=== PATIENT | female | born 2000 | race Caucasian/White ===

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

== ENCOUNTER → 2020-06-12 | Outpatient (CLI) | payer BC ==
--- NOTE | 2020-06-12 11:42 | CT ---
EXAMINATION TYPE: CT angio chest DATE OF EXAM: 06/12/2020 COMPARISON: Radiograph 08/06/2016 HISTORY: 19 year-old female shortness of breath, R79.1, Abnormal d-dimer TECHNIQUE: Contiguous axial scanning of the chest performed with IV Contrast, patient injected with 1 00 mL of Isovue 370. Coronal/sagittal MIP reconstructions performed. CT DLP: 1268 mGycm Automated exposure control for dose reduction was used. FINDINGS: Heart normal size without pericardial effusion. Aorta normal caliber with very direct takeoff of the left vertebral artery directly from the aortic a rch. Residual anterior mediastinal thymic tissue. Prominent 1.5 cm right hilar lymph node. Suboptimal opacification of the pulmonary arterial system. There is subtle central area of low densit y within the left lower lobe segmental branch, referred axial image 96 and coronal image 71. However, again, the exam is limited by suboptimal contrast bolus. Otherwise, no definite pulmonary embolus. There is focal patchy bronchovascular nodular opacity, anterior right perihilar region, axial image 6 0 through 66. Additional nodular subpleural opacity anterior right upper lobe, axial image 29. No pleural effusion. Visualized upper abdomen shows no gross abnormal mobility. Bones: No osseous destructive process. IMPRESSION: 1. EQUIVOCAL FINDING DUE TO SUBOPTIMAL ARTERIAL OPACIFICATION. THERE IS A TINY CENTRAL LOW DENSITY FO CUS WITHIN A SEGMENTAL BRANCH OF THE LEFT LOWER LOBE (AXIAL IMAGE 96 AND CORONAL IMAGE 71) THAT COULD REPRESENT MIXING ARTIFACT OR A TINY PERIPHERAL BRANCH PULMONARY EMBOLUS. NO LARGE CENTRAL OR LOBAR B RANCH EMBOLUS. FURTHER CLINICAL CORRELATION WILL BE NEEDED. 2. PATCHY NODULAR PERIBRONCHOVASCULAR OPACITY ANTERIOR RIGHT HILAR REGION AND ADDITIONAL NODULAR SUBP LEURAL OPACITY ANTERIOR RIGHT UPPER LOBE. CORRELATE TO EXCLUDE THE POSSIBILITY OF EARLY ATYPICAL PNEU MONIA. 3. MILDLY ENLARGED RIGHT HILAR LYMPH NODE MEASURING 1.5 CM.
== END | disposition home or self-care (01) ==
LOC: RADCTMAIN 09:51
PROVIDERS: ATTEND Physician Assistant
DX: J98.4 Other disorders of lung (principal); R91.8 Other nonspecific abnormal finding of lung field; R59.9 Enlarged lymph nodes, unspecified; R79.1 Abnormal coagulation profile
CPT/HCPCS: 71275; Q9967

== ENCOUNTER → 2020-09-04 | Outpatient (CLI) | payer BC ==
--- NOTE | 2020-09-04 09:53 | CT ---
EXAMINATION TYPE: CT angio chest DATE OF EXAM: 09/04/2020 COMPARISON: Prior CT angiogram of the chest 06/12/2020 HISTORY: Pulmonary embolus CT DLP: 352.40 mGycm Automated exposure control for dose reduction was used. CONTRAST: CTA scan of the thorax is performed without and with IV Contrast, patient injected with 100 ml mL of Isovue 370, pulmonary embolism protocol. MIP images are created and reviewed. 3D reconstructed imag es are created on an independent workstation and reviewed. FINDINGS: LUNGS: The lungs are stable, there is some minimal airspace disease, soft tissue present in the right upper lobe, axial images #46 through 50, axial image 49 shows probable air bronchogram. Sagittal darlyn ge #75 shows abnormal soft tissue density which correlates. Punctate hyperintensity is noted, coronal image #62, axial image #50. There is no pleural effusion or pneumothorax seen. The tracheobronchia l tree is patent. AORTA: No additional significant abnormality is seen. MEDIASTINUM: There is satisfactory enhancement of the pulmonary artery and its branches, there is no CT evidence for pulmonary embolism. Right hilar node appears enlarged There are no greater than 1 cm mediastinal lymph nodes. No pericardial effusion is seen. OTHER: No additional significant abnormality is seen. IMPRESSION: FINDINGS MAY BE DUE TO GRANULOMATOUS INFECTION, FOLLOW-UP COULD BE PERFORMED TO ASSESS FOR STABILITY.
== END ==
LOC: RADCTMAIN 09-03 07:31
PROVIDERS: ATTEND Internal Medicine Critical Care Medicine
DX: I26.99 Other pulmonary embolism without acute cor pulmonale (principal)
CPT/HCPCS: 71275; Q9967

== ENCOUNTER → 2020-11-17 | Outpatient (CLI) | payer BC ==
--- NOTE | 2020-11-18 07:20 | US ---
EXAMINATION TYPE: US thyroid st tissue head/neck DATE OF EXAM: 11/17/2020 COMPARISON: NONE CLINICAL HISTORY: R22.1 Swelling mass of neck. Pt states palpable right lateral/posterior neck, pt st ates sometimes it is painful to the touch At the area of palpable lump in the right lateral posterior cervical region, there is a probable lymp h node measuring 1.3 x 0.5 x 0.5 cm. This appears to have a faint fatty hilum with color flow. Contin ued clinical follow-up to resolution is recommended. Return to imaging as clinically indicated. IMPRESSION: 1. Probable lymph node at the site of palpable lump in the right lateral posterior cervical region me asuring 1.3 cm. Continued clinical follow-up to resolution is recommended. Return to imaging as clini allen indicated.
== END | disposition home or self-care (01) ==
LOC: RADUSWWP 13:40
PROVIDERS: ATTEND Family Medicine
DX: R22.1 Localized swelling, mass and lump, neck (principal)
CPT/HCPCS: 76536

== ENCOUNTER → 2021-01-05 | Outpatient (CLI) | payer BC ==
--- NOTE | 2021-01-05 16:28 | US ---
EXAMINATION TYPE: US soft tissue head/neck DATE OF EXAM: 01/05/2021 COMPARISON: US 11/17/2020 CLINICAL HISTORY: R22.1 SWELLING,MASS.LUMP. Right palpable posterior lymph node seems larger than tonya or US. Bilateral posterior neck scanned: couple of right posterior neck nodes seen with larger = 1.1 x 1.0 x 0.5cm. Couple of left posterior neck nodes are seen for comparison with larger node = 1.1 x 1.1 x 0. 4cm. IMPRESSION: 1. Bilateral lymphadenopathy in the posterior cervical region. The right cervical posterior lymph nod e is 1.1 x 1.0 x 0.5 cm. Previously the right posterior neck lymph node was 1.3 x 0.5 x 0.5 cm. The left posterior cervical lymph node is 1.1 x 1.1 x 0.4 cm. These are most likely reactive lymph no jose. Clinical correlation is recommended. Follow-up to resolution and return imaging as clinically in dicated.
== END | disposition home or self-care (01) ==
LOC: RADUSWWP 14:49
PROVIDERS: ATTEND Family Medicine
DX: R59.1 Generalized enlarged lymph nodes (principal)
CPT/HCPCS: 76536

== ENCOUNTER → 2021-02-10 | Outpatient (CLI) | payer BC ==
--- NOTE | 2021-02-11 06:57 | CT ---
EXAMINATION TYPE: CT soft tissue neck w con DATE OF EXAM: 02/10/2021 HISTORY: enlarged lymph nodes x4 months COMPARISON: Neck ultrasound 12/20/[address] DLP: 3085.8 (with chest abd and pelvis) mGycm. Automated Exposure Control for Dose Reduction was Utilized. TECHNIQUE: CT scan of the neck is performed with IV Contrast, patient injected with 100 mL of Isovue 300, axial images are obtained, coronal and sagittal reformatted images are reviewed. FINDINGS: Airway: No gross abnormality seen. Parotid/submandibular glands: No gross abnormality seen. Carotid/Vascular Structures: Poor contrast bolus. No significant stenosis. Osseous Structures: No suspicious abnormality. Other: Scattered subcentimeter lymph nodes throughout the neck bilaterally. No abnormal greater than 1 cm neck adenopathy. The parapharyngeal spaces are maintained bilaterally. IMPRESSION: Nonspecific scattered subcentimeter lymph nodes. No suspicious mass or greater than 1 cm neck adenopathy.
--- NOTE | 2021-02-11 07:02 | CT ---
EXAMINATION TYPE: CT ChestAbdPelvis w con DATE OF EXAM: 02/10/2021 COMPARISON: CTA chest September 04, 2020 and June 12, 2020. HISTORY: enlarged lymph nodes CT DLP: 3085.8 (with st neck) mGycm. Automated Exposure Control for Dose Reduction was Utilized. CONTRAST: CT scan of the thorax, abdomen and pelvis is performed with oral and with IV Contrast, patient inject ed with 100 mL of Isovue 300. FINDINGS: LUNGS: The lungs remain grossly clear, there is no concerning new parenchymal mass or nodule identifi ed. There is no pleural effusion or pneumothorax seen. The tracheobronchial tree is patent. MEDIASTINUM: Stable slightly prominent right hilar lymph nodes with anterior extension. Stable promin ent borderline enlarged right paratracheal lymph node axial image 21. There are no new greater than 1 cm hilar or mediastinal lymph nodes. No cardiomegaly or pericardial effusion is seen. Curvilinear soft tissue density anterior superior mediastinum could reflect residual thymus tissue similar to pr ior. OTHER: No suspicious axillary adenopathy. LIVER/GB: Liver within normal limits in size; cannot exclude mild diffuse fatty infiltration. PANCREAS: No significant abnormality is seen. SPLEEN: Mild splenomegaly at 13.3 cm long axis axial image 56. ADRENALS: No significant abnormality is seen. KIDNEYS: No significant abnormality is seen. BOWEL: No significant abnormality is seen. GENITAL ORGANS: Ovaries symmetric and within normal limits in size. LYMPH NODES: No greater than 1cm abdominal or pelvic lymph nodes are appreciated. OSSEOUS STRUCTURES: No significant abnormality is seen. OTHER: No significant additional abnormality is seen. IMPRESSION: Stable prominent right hilar lymph nodes and right paratracheal lymph node. No new enlarg ed lymph nodes. No abnormal adenopathy in the abdomen or pelvis.
== END | disposition home or self-care (01) ==
LOC: RADCTMAIN 14:57
PROVIDERS: ATTEND Internal Medicine Hematology & Oncology
DX: R59.0 Localized enlarged lymph nodes (principal)
CPT/HCPCS: 70491; 71260; 74177; Q9967

== ENCOUNTER 2021-02-12 12:52 | Emergency (ER) | payer BC ==
[2021-02-12 13:18] VITALS: TEMP 98.9
[2021-02-12 14:39] VITALS: RESP 18
[2021-02-12 14:48] LABS: Basophils % (A) 0 %; Eosinophils # (A) 0.1 k/uL (0-0.7); Eosinophils % (A) 1 %; HCT 44.4 % (34.0-46.0); HGB 14.4 gm/dL (11.4-16.0); Lymphocytes # (A) 1.8 k/uL (1.0-4.8); Lymphocytes % (A) 21 %; MCH 27.9 pg (25.0-35.0); MCHC 32.3 g/dL (31.0-37.0); MCV 86.2 fL (80.0-100.0); Monocytes # (A) 0.3 k/uL (0-1.0); Monocytes % (A) 4 %; Neutrophils # (A) 6.5 k/uL (1.3-7.7); Neutrophils % (A) 73 %; Platelet Count 256 k/uL (150-450); RBC 5.15 m/uL (3.80-5.40); RDW 13.7 % (11.5-15.5); WBC 8.9 k/uL (3.8-10.6)
--- NOTE | 2021-02-12 15:00 | ED ---
General Adult HPI - General Chief complaint: Shortness of Breath Stated complaint: Possible PE, Sent by DR Time Seen by Provider: 02/12/21 13:21 Source: patient, RN notes reviewed Mode of arrival: ambulatory Limitations: no limitations - History of Present Illness Initial comments: 20-year-old female presents emergency apartment with chief complaint of possible PE. Patient states she had COVID-19 last year developed a PE which she was on blood thinners for 3 months. Patient states she was discontinued from them. Recent she started having cough congestion shortness of breath primary care physician sent in to rule out possible PE. Patient has been being followed by pulmonary and oncology secondary to night sweats, lymph node enlargement in [facility] she had CAT scan with no specific findings. Patient has no point a chest pain no palpitations currently - Related Data Home Medications Medication Instructions Recorded Confirmed Beclomethasone Dipropionate [Qvar 1 puff INHALATION DAILY 08/06/16 08/06/16 40 mcg] ALPRAZolam [Xanax] 0.25 mg PO DAILY PRN 01/28/21 01/28/21 Escitalopram [Lexapro] 20 mg PO DAILY 01/28/21 01/28/21 Levothyroxine Sodium [Synthroid] 25 mcg PO DAILY 01/28/21 01/28/21 Minocycline [Minocin] 50 mg PO Q6HR 01/28/21 01/28/21 Previous Rx's Medication Instructions Recorded EPINEPHrine (Auto Inject) [Epipen] 0.3 mg IM ONCE PRN #2 syringe 08/06/16 Allergies Allergy/AdvReac Type Severity Reaction Status Date / Time No Known Allergies Allergy Verified 02/12/21 13:18 Review of Systems ROS Statement: Those systems with pertinent positive or pertinent negative responses have been documented in the HPI. ROS Other: All systems not noted in ROS Statement are negative. Past Medical History Past Medical History: Pneumonia, Pulmonary Embolus (PE), Thyroid Disorder Additional Past Medical History / Comment(s): COVID 05/22. vitiligo. anemia History of Any Multi-Drug Resistant Organisms: None Reported Past Surgical History: No Surgical Hx Reported Past Psychological History: No Psychological Hx Reported Smoking Status: Never smoker Past Alcohol Use History: None Reported Past Drug Use History: None Reported General Exam Limitations: no limitations General appearance: alert, in no apparent distress Head exam: Present: atraumatic, normocephalic, normal inspection Eye exam: Present: normal appearance, PERRL, EOMI. Absent: scleral icterus, conjunctival injection, periorbital swelling ENT exam: Present: normal exam, normal oropharynx, mucous membranes moist Neck exam: Present: normal inspection, full ROM. Absent: tenderness, meningismus, lymphadenopathy Respiratory exam: Present: normal lung sounds bilaterally. Absent: respiratory distress, wheezes, rales, rhonchi, stridor Cardiovascular Exam: Present: normal rhythm, tachycardia, normal heart sounds. Absent: systolic murmur, diastolic murmur, rubs, gallop, clicks GI/Abdominal exam: Present: soft, normal bowel sounds. Absent: distended, tenderness, guarding, rebound, rigid Back exam: Absent: CVA tenderness (R), CVA tenderness (L) Neurological exam: Present: alert Skin exam: Present: warm, dry, intact, normal color. Absent: rash Course Vital Signs 02/12/21 02/12/21 02/12/21 13:12 14:38 15:00 Temperature 98.9 F Pulse Rate 113 H 115 H 107 H Respiratory 22 18 18 Rate Blood Pressure 126/81 107/65 106/66 O2 Sat by Pulse 98 99 99 Oximetry EKG Findings - EKG Comments: EKG Findings:: EKG performed at 15:02 sinus tachycardia rate of 104 NM 126 QRS 74 QT/QTC 334/439 Medical Decision Making - Medical Decision Making X-rays unremarkable labs are likewise unremarkable negative d-dimer. Patient heart rate has improved. Patient will follow-up with palpation echo return parameters were discussed patient does have an upper extremity infection. - Lab Data Result diagrams: 02/12/21 14:21 02/12/21 14:21 Lab Results 02/12/21 02/12/21 02/12/21 Range/Units 14:21 14:21 14:21 WBC 8.9 (3.8-10.6) k/uL RBC 5.15 (3.80-5.40) m/uL Hgb 14.4 (11.4-16.0) gm/dL Hct 44.4 (34.0-46.0) % MCV 86.2 (80.0-100.0) fL MCH 27.9 (25.0-35.0) pg MCHC 32.3 (31.0-37.0) g/dL RDW 13.7 (11.5-15.5) % Plt Count 256 (150-450) k/uL MPV 9.0 Neutrophils % 73 % Lymphocytes % 21 % Monocytes % 4 % Eosinophils % 1 % Basophils % 0 % Neutrophils # 6.5 (1.3-7.7) k/uL Lymphocytes # 1.8 (1.0-4.8) k/uL Monocytes # 0.3 (0-1.0) k/uL Eosinophils # 0.1 (0-0.7) k/uL Basophils # 0.0 (0-0.2) k/uL PT 9.9 (9.0-12.0) sec INR 0.9 (<1.2) APTT 26.3 (22.0-30.0) sec D-Dimer <0.17 (<0.60) mg/L FEU Sodium 139 (137-145) mmol/L Potassium 4.6 (3.5-5.1) mmol/L Chloride 103 (98-107) mmol/L Carbon Dioxide 25 (22-30) mmol/L Anion Gap 11 mmol/L BUN 11 (7-17) mg/dL Creatinine 0.47 L (0.52-1.04) mg/dL Est GFR (CKD-EPI)AfAm >90 (>60 ml/min/1.73 sqM) Est GFR (CKD-EPI)NonAf >90 (>60 ml/min/1.73 sqM) Glucose 88 (74-99) mg/dL Calcium 10.1 (8.4-10.2) mg/dL Total Bilirubin 0.3 (0.2-1.3) mg/dL AST 34 (14-36) U/L ALT 52 H (4-34) U/L Alkaline Phosphatase 97 (38-126) U/L Troponin I (0.000-0.034) ng/mL Total Protein 7.5 (6.3-8.2) g/dL Albumin 4.8 (3.5-5.0) g/dL Urine HCG, Qual (Not Detectd) 02/12/21 02/12/21 Range/Units 14:21 14:21 WBC (3.8-10.6) k/uL RBC (3.80-5.40) m/uL Hgb (11.4-16.0) gm/dL Hct (34.0-46.0) % MCV (80.0-100.0) fL MCH (25.0-35.0) pg MCHC (31.0-37.0) g/dL RDW (11.5-15.5) % Plt Count (150-450) k/uL MPV Neutrophils % % Lymphocytes % % Monocytes % % Eosinophils % % Basophils % % Neutrophils # (1.3-7.7) k/uL Lymphocytes # (1.0-4.8) k/uL Monocytes # (0-1.0) k/uL Eosinophils # (0-0.7) k/uL Basophils # (0-0.2) k/uL PT (9.0-12.0) sec INR (<1.2) APTT (22.0-30.0) sec D-Dimer (<0.60) mg/L FEU Sodium (137-145) mmol/L Potassium (3.5-5.1) mmol/L Chloride (98-107) mmol/L Carbon Dioxide (22-30) mmol/L Anion Gap mmol/L BUN (7-17) mg/dL Creatinine (0.52-1.04) mg/dL Est GFR (CKD-EPI)AfAm (>60 ml/min/1.73 sqM) Est GFR (CKD-EPI)NonAf (>60 ml/min/1.73 sqM) Glucose (74-99) mg/dL Calcium (8.4-10.2) mg/dL Total Bilirubin (0.2-1.3) mg/dL AST (14-36) U/L ALT (4-34) U/L Alkaline Phosphatase (38-126) U/L Troponin I <0.012 (0.000-0.034) ng/mL Total Protein (6.3-8.2) g/dL Albumin (3.5-5.0) g/dL Urine HCG, Qual Not Detected (Not Detectd) Disposition Clinical Impression: URI (upper respiratory infection), Tachycardia, Dyspnea Disposition: HOME SELF-CARE Condition: Stable Instructions (If sedation given, give patient instructions): Tachycardia (ED) Additional Instructions: Please return to the Emergency Department if symptoms worsen or any other concerns. Is patient prescribed a controlled substance at d/c from ED?: No Referrals: Gualberto Morris MD [Primary Care Provider] - 1-2 days Time of Disposition: 16:06
[2021-02-12 15:03] LABS: INR 0.9 (<1.2); Partial Thromboplastin Time 26.3 sec (22.0-30.0); Prothrombin Time 9.9 sec (9.0-12.0)
[2021-02-12 15:04] LABS: ALT 52 U/L (4-34); AST 34 U/L (14-36); African American GFR (CKD) >90 (>60 ml/min/1.73 sqM); Albumin 4.8 g/dL (3.5-5.0); Alkaline Phosphatase 97 U/L (38-126); Anion Gap 11 mmol/L; Blood Urea Nitrogen 11 mg/dL (7-17); Calcium 10.1 mg/dL (8.4-10.2); Carbon Dioxide 25 mmol/L (22-30); Chloride 103 mmol/L (98-107); Glucose 88 mg/dL (74-99); Non-African American GFR(CKD) >90 (>60 ml/min/1.73 sqM); Potassium 4.6 mmol/L (3.5-5.1); Sodium 139 mmol/L (137-145); Total Bilirubin 0.3 mg/dL (0.2-1.3); Total Protein 7.5 g/dL (6.3-8.2)
--- NOTE | 2021-02-12 15:37 | XR ---
EXAMINATION TYPE: XR chest 2V DATE OF EXAM: 02/12/2021 COMPARISON: To 417 INDICATION: Difficulty breathing TECHNIQUE: Frontal and lateral views of the chest are obtained. FINDINGS: The heart size is normal. The pulmonary vasculature is normal. The lungs are clear. IMPRESSION: 1. No acute pulmonary process.
[2021-02-12 15:50] VITALS: BP 106/66; PULSE 107
== END 2021-02-12 16:15 | disposition home or self-care (01) ==
LOC: EC 12:52
DX: J06.9 Acute upper respiratory infection, unspecified (principal); R00.0 Tachycardia, unspecified; E07.9 Disorder of thyroid, unspecified; Z79.01 Long term (current) use of anticoagulants; Z86.16 Personal history of COVID-19; Z79.890 Hormone replacement therapy
CPT/HCPCS: 36415; 71046; 80053; 81025; 84484; 85025; 85379; 85610; 85730; 93005; 99285

== ENCOUNTER → 2021-03-11 | Outpatient (CLI) | payer BC ==
--- NOTE | 2021-03-12 10:48 | ECHOF ---
Referral Reason:R05 Cough MEASUREMENTS -------- HEIGHT: 162.6 cm WEIGHT: 108.9 kg BP: RVIDd: 3.0 cm (< 3.3) IVSd: 1.0 cm (0.6 - 1.1) LVIDd: 4.4 cm (3.9 - 5.3) LVPWd: 1.0 cm (0.6 - 1.1) IVSs: 1.5 cm LVIDs: 3.1 cm LVPWs: 1.7 cm LA Diam: 3.2 cm (2.7 - 3.8) Ao Diam: 2.4 cm (2.0 - 3.7) AV Cusp: 1.9 cm (1.5 - 2.6) LA Diam: 3.3 cm (2.7 - 3.8) MV EXCURSION: 15.135 mm (> 18.000) MV EF SLOPE: 94 mm/s (70 - 150) EPSS: 0.2 cm MV E Sanjiv: 1.06 m/s MV DecT: 165 ms MV A Sanjiv: 0.70 m/s MV E/A Ratio: 1.50 RAP: 5.00 mmHg RVSP: 32.16 mmHg FINDINGS -------- Sinus rhythm. This was a technically adequate study. The left ventricular size is normal. Left ventricular wall thickness is normal. Overall left vent ricular systolic function is normal with, an EF between 55 - 60 %. The diastolic filling pattern is normal for the age of the patient 12.66. The right ventricle is mildly enlarged. The left atrial size is normal. The right atrium is mildly enlarged. Interatrial and interventricular septum intact. There is no evidence of aortic regurgitation. There is no evidence of aortic stenosis. No mitral regurgitation. Mild tricuspid regurgitation present. There is no evidence of pulmonary hypertension. The right v entricular systolic pressure, as measured by Doppler, is 32.16mmHg. There is no pulmonic regurgitation present. The aortic root size is normal. IVC Not well visulized. There is no pericardial effusion. CONCLUSIONS -------- 1. The left ventricular size is normal. 2. Left ventricular wall thickness is normal. 3. Overall left ventricular systolic function is normal with, an EF between 55 - 60 %. 4. The right ventricle is mildly enlarged. 5. The right atrium is mildly enlarged. 6. Mild tricuspid regurgitation present. MULTIPLE KNIFE EDGE TRIMMER OPERATOR: Gloria Wyman RDCS
== END | disposition home or self-care (01) ==
LOC: RADECHMAIN 16:14
PROVIDERS: ATTEND Family Medicine
DX: I07.1 Rheumatic tricuspid insufficiency (principal)
CPT/HCPCS: 93306

== ENCOUNTER → 2021-06-11 | Outpatient (CLI) | payer BC | END | disposition home or self-care (01) | LOC: LABWHC1 07:23 | PROVIDERS: ATTEND Physician Assistant Medical | DX: R23.2 Flushing (principal) | CPT/HCPCS: 82384; 82530; 83835 ==

== ENCOUNTER → 2021-06-28 | Outpatient (CLI) | payer BC ==
--- NOTE | 2021-06-29 00:58 | MR ---
EXAMINATION TYPE: MR shoulder RT wo con DATE OF EXAM: 06/28/2021 COMPARISON: None HISTORY: Pain in right shoulder Multiplanar multi echo imaging of the right shoulder without contrast. The subscapularis tendon is intact. Glenoid francois appear intact. Biceps tendon appears normal. There is trace minimal shoulder joint effusion. The AC joint is intact. There is no subacromial impingement . Supraspinatus tendon show small defect near the attachment on the greater tuberosity of the humerus . There is no retraction. There is no evidence of a fracture. Humeral head is intact. I see no bony destructive process. There is no evidence of a soft tissue mass. IMPRESSION: Small vertical tear through the supraspinatus tendon near the attachment on the greater tuberosity. N o retraction. Small shoulder joint effusion suggestive of some mild synovitis.
== END | disposition home or self-care (01) ==
LOC: RADMRIMAIN 09:07
PROVIDERS: ATTEND Family Medicine
DX: S46.911A Strain of unspecified muscle, fascia and tendon at shoulder and upper arm level, right arm, initial encounter (principal); X58.XXXA Exposure to other specified factors, initial encounter

== ENCOUNTER → 2021-09-30 | Outpatient (CLI) | payer BC ==
[2021-09-30 15:25] LABS: African American GFR (CKD) >90 (>60 ml/min/1.73 sqM); Blood Urea Nitrogen 12 mg/dL (7-17); Non-African American GFR(CKD) >90 (>60 ml/min/1.73 sqM)
--- NOTE | 2021-09-30 21:00 | CT ---
EXAMINATION TYPE: CT sinus w con DATE OF EXAM: 09/30/2021 COMPARISON: CT dated 02/10/2021 HISTORY: Fever and dizziness for [address] DLP: 1315 mGycm (combined with the chest) Automated exposure control for dose reduction was used. CONTRAST: CT scan of the paranasal sinuses is performed with IV Contrast, patient injected with 100 mL of Isovu e 300. TECHNIQUE: CT scan of the sinuses is performed without contrast, axial images are obtained, coronal r eformatted images are also reviewed. FINDINGS: Slightly deviated bony nasal septum convex to the left side. Right middle kenneth bullosa. Unremarkabl e left middle turbinate and inferior turbinates. Slightly obliterated left infundibulum and left osti omeatal complex by minimal mucosal thickening. Patent right infundibulum and right ostiomeatal comple x. Minimal mucosal thickening of the inferior aspects of the maxillary sinuses and right anterior ethmoi d air cells, otherwise unremarkable maxillary sinuses, frontal sinus, ethmoid air cells and sphenoid sinus with patent sphenoethmoidal recesses. Clear visualized mastoid air cells. Unremarkable visualiz ed portion of the brain and orbits. IMPRESSION: Minimal mucosal thickening of the maxillary sinuses and right anterior ethmoid air cells, otherwise unremarkable paranasal sinuses. Other findings as described above.
--- NOTE | 2021-09-30 21:28 | CT ---
EXAMINATION TYPE: CT chest w con DATE OF EXAM: 09/30/2021 COMPARISON: CT dated 02/10/2021 HISTORY: Fever and dizziness for 6 months, history of PE CT DLP: 1315 mGycm (combined with the paranasal sinus CT) Automated exposure control for dose reduction was used. TECHNIQUE: CT scan of the chest is performed with IV Contrast, patient injected with 100 mL of Isovue 300. FINDINGS: LUNGS: Stable 7 mm right apical pleural-based nodule since June 2020 CT scan consistent with princess gn nodule and requiring no further follow-up. Unremarkable lungs otherwise. Patent central airways. N o pleural effusion. MEDIASTINUM: Stable prominent right hilar and right paratracheal lymph nodes without interval progres fabiola. No progressive lymphadenopathy in the chest. Persistent anterior mediastinal soft tissue densit y which could represent residual thymic tissue. No gross cardiomegaly. The pulmonary trunk measures 2 .8 cm. Patent major mediastinal vessels. No pericardial effusion. OTHER: Hepatic steatosis. Chronic healed fracture of the right clavicle. No aggressive bone lesion. IMPRESSION: Stable chronic findings as described above. No evidence of acute abnormality or suspicious lesion see n in the chest. Incidental findings as described above.
== END | disposition home or self-care (01) ==
LOC: RADCTMAIN 13:32
PROVIDERS: ATTEND Family Medicine
DX: R50.9 Fever, unspecified (principal)
CPT/HCPCS: 84260; 82565; 84520; 82785; 71260; 36415; 70487; Q9967

== ENCOUNTER → 2021-10-15 | Outpatient (CLI) | payer BC ==
--- NOTE | 2021-10-20 17:20 | PE ---
Nuclear medicine PET/CT HISTORY: R 50.9, fever Patient received 11 mCi F-18 FDG intravenously and delayed scanning was performed from the skull base through the legs. A localization and attenuation correction CT scan was performed. Correlation CT chest 09/30/2021 Chest and neck: There is no suspicious uptake. No evident cervical or supraclavicular adenopathy. There is no mediastinal, axillar, or hilar adenopathy, no suspicious uptake. No evident lung mass. ABDOMEN: There is no ascites. No evident liver mass or adrenal mass. No retroperitoneal adenopathy. N o suspicious uptake. Uptake along the bowel is felt likely to be physiologic. There is no pelvic alan opathy or free fluid. Osseous structures show no suspicious uptake. Extremities are unremarkable. IMPRESSION: Normal PET CT.
== END | disposition home or self-care (01) ==
LOC: RADPETMAIN 16:37
PROVIDERS: ATTEND Family Medicine
DX: R50.9 Fever, unspecified (principal)
CPT/HCPCS: 78816; A9552

== ENCOUNTER → 2021-10-26 | Outpatient (CLI) | payer BC ==
[2021-10-27 04:35] LABS: Scleroderma SC-70 Ab <0.2 AI
[2021-10-27 14:00] LABS: C-ANCA <1:20 Titer (<1:20)
[2021-10-27 14:28] LABS: % Iron Saturation 14.54 (12.00-45.00); C Reactive Protein, High Sens 16.2 mg/L (0.000-3.000)
== END | disposition home or self-care (01) ==
LOC: LABWHC1 16:21
PROVIDERS: ATTEND Physician Assistant Medical
DX: R50.9 Fever, unspecified (principal); D50.9 Iron deficiency anemia, unspecified; R23.2 Flushing; R07.89 Other chest pain
CPT/HCPCS: 36415; 82103; 82585; 82595; 82607; 82728; 82746; 83520; 83540; 83550; 85652; 86141; 86235; 86255; 86618

== ENCOUNTER → 2022-12-01 | Outpatient (CLI) | payer BC ==
[2022-12-02 02:21] LABS: Basophils # (A) 0.04 X 10*3/uL (0.00-0.10); Basophils % (A) 0.4 %; Eosinophils # (A) 0.06 X 10*3/uL (0.04-0.35); Eosinophils % (A) 0.6 %; HCT 42.4 % (37.2-46.3); HGB 12.8 g/dL (12.0-15.0); Immature Grans, Automated 0.6 %; Lymphocytes # (A) 1.99 X 10*3/uL (0.90-5.00); Lymphocytes % (A) 19.1 %; MCH 26.1 pg (27.0-32.0); MCHC 30.2 g/dL (32.0-37.0); MCV 86.5 fL (80.0-97.0); Monocytes # (A) 0.43 X 10*3/uL (0.20-1.00); Monocytes % (A) 4.1 %; NRBC Per 100 WBC 0 /100 WBCS (0.0-0.0); Neutrophils # (A) 7.84 X 10*3/uL (1.80-7.70); Neutrophils % (A) 75.2 %; Platelet Count 336 X 10*3/uL (140-440); RDW 13.9 % (11.5-14.5); WBC 10.42 X 10*3/uL (4.50-10.00)
[2022-12-02 02:54] LABS: ALT 17 U/L (8-44); AST 19 U/L (13-35); African American GFR (CKD) 152.2 (60.0-200.0); Albumin 4.5 g/dL (3.8-4.9); Albumin/Globulin Ratio 1.78 (1.60-3.17); Alkaline Phosphatase 77 U/L (41-126); BUN/Creat Ratio 13.16 Ratio (12.00-20.00); Blood Urea Nitrogen 7.4 mg/dL (9.0-27.0); Calcium 9.4 mg/dL (8.7-10.3); Carbon Dioxide 20.6 mmol/L (20.0-27.5); Chloride 105 mmol/L (96-109); Ferritin 79.9 ng/mL (10.0-291.0); Globulin 2.5 g/dL (1.6-3.3); Glucose 98 mg/dL (70-110); Iron 39 ug/dL (50-170); Non-African American GFR(CKD) 131.4 (60.0-200.0); Potassium 4.2 mmol/L (3.5-5.5); Sodium 140 mmol/L (135-145); Total Bilirubin <0.15 mg/dL (0.30-1.20); Total Iron Binding Capacity 489 ug/dL (228-460); Total Protein 7.1 g/dL (6.2-8.2)
[2022-12-02 03:57] LABS: Erythrocyte Sedimentation Rate 49 mm/Hr (0-20)
[2022-12-02 11:24] LABS: Hepatitis B Surface AB- Quant 3.5 mIU/mL; Hepatitis B Surface Antibody Nonreactive (Nonreactive)
== END | disposition home or self-care (01) ==
LOC: LABWHC1 15:49
PROVIDERS: ATTEND Physician Assistant Medical
DX: Z11.1 Encounter for screening for respiratory tuberculosis (principal); Z76.89 Persons encountering health services in other specified circumstances; R53.83 Other fatigue
CPT/HCPCS: 36415; 80053; 82306; 82607; 82728; 82746; 83540; 83550; 84443; 85025; 85652; 86140; 86480; 86706

== ENCOUNTER → 2023-04-03 | Outpatient (CLI) | payer BC ==
[~2023-04-03] MED LIST: IRON SUCROSE 200 MG in SODIUM CHLORIDE 0.9% 100 ML IVPB NR; SODIUM CHLORIDE 0.9% 500 ML 500 ML in EMPTY BAG 1 BAG IV PRN
[2023-04-03 08:18] VITALS: BP 116/82; PULSE 94; RESP 16; TEMP 97.8
== END ==
LOC: PROCWHC3 07:59
PROVIDERS: ATTEND Physician Assistant Medical
DX: D50.9 Iron deficiency anemia, unspecified (principal)
CPT/HCPCS: 96365; J1756

== ENCOUNTER → 2023-06-15 | Outpatient (CLI) | payer BC ==
--- NOTE | 2023-06-15 09:21 | US ---
EXAMINATION TYPE: US abdomen limited DATE OF EXAM: 06/15/2023 COMPARISON: NONE CLINICAL INDICATION: Female, 22 years old with history of R10.12 LEFT UPPER QUADRANT PAIN; Left upper quadrant pain, occasional fevers TECHNIQUE: Multiple sonographic images of the left upper quadrant are obtained. FINDINGS: EXAM MEASUREMENTS: Spleen: 11.6 cm Left Kidney: 11.3 x 6.0 x 5.1 cm 1. Spleen: wnl 2. Left Kidney: wnl IMPRESSION: No significant abnormality appreciated.
== END | disposition home or self-care (01) ==
LOC: RADUSWWP 08:48
PROVIDERS: ATTEND Family Medicine
DX: R10.12 Left upper quadrant pain (principal)
CPT/HCPCS: 76705

== ENCOUNTER 2023-06-16 08:41 | Day surgery (SDC) | payer BC ==
[2023-06-14 11:05] VITALS: BMI 36.6
[~2023-06-16 08:41] MED LIST changes: -IRON SUCROSE 200 MG in SODIUM CHLORIDE 0.9% 100 ML IVPB NR; +LACTATED RINGERS 1,000 ML IV SCH; +LIDOCAINE 1% (10MG/ML) FOR IV START INTRADERMA PRN; -SODIUM CHLORIDE 0.9% 500 ML 500 ML in EMPTY BAG 1 BAG IV PRN
[2023-06-16 09:18] VITALS: TEMP 97.5
[2023-06-16] MEDS ORDERED: LIDOCAINE 2% (PF) 20 MG/ML 5 ML VIAL ONE (09:24)
[2023-06-16] MEDS ORDERED: fentaNYL (PF) 50 MCG/ML 2 ML AMP ONE (09:24)
[2023-06-16] MEDS ORDERED: PROPOFOL 10 MG/ML 20 ML VIAL IV ONE (09:24)
--- NOTE | 2023-06-16 09:44 | P.PCN ---
Date of Procedure: 06/16/23 Procedure(s) Performed: Brief history: Patient is a pleasant 22-year-old white male scheduled for an elective upper endoscopy as well as colonoscopy as a part of evaluation of evaluation of iron deficiency anemia. Procedure performed: Esophagogastroduodenoscopy with biopsy Colonoscopy Preoperative diagnosis: Iron deficiency anemia Anesthesia: [facility] [place] Procedure: After informed consent was obtained from the patient was brought into the endoscopy unit and IV sedation was administered by anesthesia under continuous monitoring. Initially upper endoscopy was done. The Olympus GF 160 video endoscope was inserted inserted into the mouth and esophagus intubated without any difficulty and was gradually advanced into the stomach and duodenum and carefully examined. The bulb and second part of the duodenum appeared normal. Biopsies were done from the duodenum to rule out celiac disease. The scope was then withdrawn into the stomach adequately insufflated with air and upon careful examination the antrum had mild gastritis and biopsies were done from the antrum. Mucosa of the body, cardia and fundus appeared normal. The scope was then withdrawn into the esophagus. The GE junction was located at 40 cm to the incisors. It appeared regular with no erythema erosions or ulcerations. Rest of the esophagus appeared normal. Patient tolerated the procedure well. At this time the patient continued to remain sedation. Initial digital rectal examination was normal. Olympus CF 160 video colonoscope was then inserted into the rectum and gradually advanced to the cecum without any difficulty. Careful examination was performed as the scope was gradually being withdrawn. The prep was excellent. The cecum, ascending colon, transverse colon, descending colon, sigmoid colon and rectum appeared normal. Retroflexion was performed in the rectum and no lesions were noted. Patient tolerated the procedure well. Impression: 1. Upper endoscopy revealed mild antral gastritis 2. Colonoscopy was within normal limits with no evidence of colorectal neoplasia Recommendations: Findings of this examination were discussed with the patient as well as her family. She was advised to follow with the biopsy results.
[2023-06-16 10:08] VITALS: RESP 16
[2023-06-16 10:34] VITALS: BP 107/75; PULSE 83
== END 2023-06-16 10:50 | disposition home or self-care (01) ==
LOC: ORWHC2ENDO 08:41
PROVIDERS: ATTEND Internal Medicine Gastroenterology
DX: D72.820 Lymphocytosis (symptomatic) (principal); K29.50 Unspecified chronic gastritis without bleeding; D50.9 Iron deficiency anemia, unspecified; I26.99 Other pulmonary embolism without acute cor pulmonale; F41.9 Anxiety disorder, unspecified; Z79.899 Other long term (current) drug therapy
CPT/HCPCS: 81025; 88305; 88342; 45378; 43239; J3010; J2704; J2001

== ENCOUNTER 2023-07-07 20:25 | Emergency (ER) | payer BC ==
--- NOTE | 2023-07-07 21:48 | ED ---
General Adult HPI - General Source: patient, RN notes reviewed Mode of arrival: ambulatory Limitations: no limitations <Karolyn Garrison - Last Filed: 07/07/23 21:20> <Jonah Champagne - Last Filed: 07/08/23 03:46> - General Stated complaint: SOB Time Seen by Provider: 07/07/23 21:30 - History of Present Illness Initial comments: 22 year old female presents to the emergency department for evaluation of shortness of breath. She states that she has been dealing with iron deficiency anemia and has has a recent transfusion. She states that she has been feeling more short of breath than usual for the past 1 day. She does report history of PE. She denies chest pain. She states her symptoms feel different than her PE. (Karolyn Garrison) [id number] female presenting with chief complaint of shortness of breath. Patient states that she has shortness of breath at baseline but it feels slightly worse today. She has history of iron deficiency anemia, she receives regular infusions with her next appointment being next week. She denies any chest pain. No lower extremity swelling. No palpitations. No cough, con gestion, sore throat, fever, chills. No nausea vomiting or abdominal pain. (Jonah Champagne) - Related Data Home Medications Medication Instructions Recorded Confirmed ALPRAZolam [Xanax] 0.25 mg PO DAILY PRN 01/28/21 06/29/23 Escitalopram [Lexapro] 10 mg PO DAILY 01/28/21 06/29/23 Semaglutide [Wegovy] 2.4 mg SQ DIRECTED 04/03/23 06/29/23 norethindrone-e.estradioL-iron 1 tab PO DAILY 04/03/23 06/29/23 [Blisovi 24 Fe Tablet] Aspirin [Adult Low Dose Aspirin EC] 81 mg PO DAILY 06/16/23 06/29/23 B12/Levomefolate Calcium/B-6 1 each PO DAILY 06/16/23 06/29/23 [Foltx Tablet] Previous Rx's Medication Instructions Recorded EPINEPHrine (Auto Inject) [Epipen] 0.3 mg IM ONCE PRN #2 syringe 08/06/16 Allergies Allergy/AdvReac Type Severity Reaction Status Date / Time No Known Allergies Allergy Verified 07/07/23 21:55 Review of Systems ROS Other: All systems not noted in ROS Statement are negative. <Karolyn Garrison - Last Filed: 07/07/23 21:20> ROS Other: All systems not noted in ROS Statement are negative. <Jonah Champagne - Last Filed: 07/08/23 03:46> ROS Statement: Those systems with pertinent positive or pertinent negative responses have been documented in the HPI. Past Medical History Past Medical History: Pneumonia, Pulmonary Embolus (PE), Thyroid Disorder Additional Past Medical History / Comment(s): vitiligo. anemia History of Any Multi-Drug Resistant Organisms: None Reported Past Surgical History: No Surgical Hx Reported Additional Past Surgical History / Comment(s): right neck lymph node biopsy. bone marrow biopsy to r/o lymphoma. Past Anesthesia/Blood Transfusion Reactions: No Reported Reaction Smoking Status: Never smoker - Past Family History Mother Family Medical History: CVA/TIA <Karolyn Garrison - Last Filed: 07/07/23 21:20> General Exam <Karolyn Garrison - Last Filed: 07/07/23 21:20> Limitations: no limitations General appearance: alert, in no apparent distress Head exam: Present: atraumatic, normocephalic Eye exam: Present: normal appearance Neck exam: Present: normal inspection Respiratory exam: Present: normal lung sounds bilaterally. Absent: respiratory distress, wheezes, rales, rhonchi, stridor Cardiovascular Exam: Present: regular rate, normal rhythm, normal heart sounds. Absent: systolic murmur, diastolic murmur, rubs, gallop, clicks Extremities exam: Present: normal inspection. Absent: pedal edema Neurological exam: Present: alert, oriented X3 Psychiatric exam: Present: normal affect, normal mood Skin exam: Present: warm, dry <Jonah Champagne - Last Filed: 07/08/23 03:46> - General Exam Comments Initial Comments: Visual Physical Exam Vital signs reviewed General: Well-appearing, nontoxic, no acute distress. Head: Normocephalic, atraumatic Eyes: PERRLA, EOMI ENT: Airway patent Chest: Nonlabored breathing Skin: No visual rash, normal skin tone Neuro: Alert and oriented 3 Musculoskeletal: No gross abnormalities (Karolyn Garrison) Course Vital Signs 07/07/23 07/08/23 21:55 02:38 Temperature 99.2 F 99.2 F Pulse Rate 87 95 Respiratory 17 16 Rate Blood Pressure 128/80 114/77 O2 Sat by Pulse 99 98 Oximetry Medical Decision Making <Karolyn Garrison - Last Filed: 07/07/23 21:20> - Lab Data Result diagrams: 07/07/23 21:52 07/07/23 21:52 <Jonah Champagne - Last Filed: 07/08/23 03:46> - Medical Decision Making Quick note preformed by Karolyn Garrison PA-C (Karolyn Garrison) Was pt. sent in by a medical professional or institution ([facility], REGISTERED PUBLIC HEALTH NURSE, urgent care, hospital, or fdc...) When possible be specific @ -No Did you speak to anyone other than the patient for history (EMS, parent, family, police, friend...)? What history was obtained from this source @ -No Did you review nursing and triage notes (agree or disagree)? Why? @ -I reviewed and agree with nursing and triage notes Were old charts reviewed (outside hosp., previous admission, EMS record, old EKG, old radiological studies, urgent care reports/EKG's, fdc records)? Report findings @ -No old charts were reviewed Differential Diagnosis (chest pain, altered mental status, abdominal pain women, abdominal pain men, vaginal bleeding, weakness, fever, dyspnea, syncope, headache, dizziness, GI bleed, back pain, seizure, CVA, palpatations, mental health, musculoskeletal)? @ -MDM Differential Dyspnea: Coronary syndrome, arrhythmia, tamponade, asthma, COPD, pulmonary embolism, pneumonia, pneumothorax, pulmonary effusion, anaphylaxis, diabetic ketoacidosis, flailed chest, pulmonary contusion, diaphragmatic rupture, anemia, neuromuscular this is not meant to be an all-inclusive list. EKG interpreted by me (3pts min.). @ -As above X-rays interpreted by me (1pt min.). @ -Chest x-ray shows no acute cardiopulmonary process CT interpreted by me (1pt min.). @ -None done U/S interpreted by me (1pt. min.). @ -None done What testing was considered but not performed or refused? (CT, X-rays, U/S, labs)? Why? @ -None What meds were considered but not given or refused? Why? @ -None Did you discuss the management of the patient with other professionals (jovani ferro i.e. , PA, REGISTERED PUBLIC HEALTH NURSE, lab, RT, psych nurse, social service manager, options trader, teacher, small business banking officer, protective services case worker)? Give summary @ -No Was smoking cessation discussed for >3mins.? @ -No Was critical care preformed (if so, how long)? @ -No Were there social determinants of health that impacted care today? How? (Homelessness, low income, unemployed, alcoholism, drug addiction, transportation, low edu. Level, literacy, decrease access to med. care, correction, rehab)? @ -No Was there de-escalation of care discussed even if they declined (Discuss DNR or withdrawal of care, Hospice)? DNR status @ -No What co-morbidities impacted this encounter? (DM, HTN, Smoking, COPD, CAD, Cancer, CVA, ARF, Chemo, Hep., AIDS, mental health diagnosis, sleep apnea, morbid obesity)? @ -None Was patient admitted / discharged? Hospital course, mention meds given and route, prescriptions, significant lab abnormalities, going to OR and other pertinent info. @ -21-year-old female presenting with chief complaint of shortness of breath. She states that it is slightly worse than her baseline. She states that since waiting in the waiting room it seems to have improved. History of iron deficiency anemia. History and physical exam were conducted. Heart and lungs are clear to auscultation. WBC 12.2. Hemoglobin 13.2. Remainder of lab work is essentially unremarkable. She is negative for influenza, RSV, and Covid. Chest x-ray shows no acute cardiopulmonary process. Patient is educated on today's findings. She is resting comfortably showing no signs of distress. She states symptoms seem to have improved. She is agreeable with discharge home. F ollow-up with PCP. Report back to ER with any new or worsening symptoms. Discussed return parameters and answered all questions. Patient conveyed verbal understanding and agreed to the plan. I discussed this case in detail with my attending Dr. Paez Undiagnosed new problem with uncertain prognosis? @ -No Drug Therapy requiring intensive monitoring for toxicity (Heparin, Nitro, Insulin, Cardizem)? @ -No Were any procedures done? @ -No Diagnosis/symptom? @ -Shortness of breath Acute, or Chronic, or Acute on Chronic? @ -Acute Uncomplicated (without systemic symptoms) or Complicated (systemic symptoms)? @ -Uncomplicated Side effects of treatment? @ -No Exacerbation, Progression, or Severe Exacerbation? @ -No Poses a threat to life or bodily function? How? (Chest pain, [place], NH, pneumonia, PE, COPD, DKA, ARF, appy, cholecystitis, CVA, Diverticulitis, Homicidal, Eleonora cidal, threat to staff... and all critical care pts) @ -Low likelihood (Jonah Champagne) - Lab Data Lab Results 07/07/23 07/07/23 07/07/23 Range/Units 21:52 21:52 21:52 WBC 12.2 H (3.8-10.6) k/uL RBC 4.91 (3.80-5.40) m/uL Hgb 13.2 (11.4-16.0) gm/dL Hct 40.2 (34.0-46.0) % MCV 81.8 (80.0-100.0) fL MCH 26.8 (25.0-35.0) pg MCHC 32.7 (31.0-37.0) g/dL RDW 13.3 (11.5-15.5) % Plt Count 302 (150-450) k/uL MPV 9.0 Neutrophils % 63 % Lymphocytes % 30 % Monocytes % 3 % Eosinophils % 1 % Basophils % 1 % Neutrophils # 7.7 (1.3-7.7) k/uL Lymphocytes # 3.7 (1.0-4.8) k/uL Monocytes # 0.4 (0-1.0) k/uL Eosinophils # 0.2 (0-0.7) k/uL Basophils # 0.1 (0-0.2) k/uL PT 11.1 (10.0-12.5) sec INR 1.0 (<1.2) APTT 27.8 (22.0-30.0) sec Sodium 139 (137-145) mmol/L Potassium 3.9 (3.5-5.1) mmol/L Chloride 104 (98-107) mmol/L Carbon Dioxide 23 (22-30) mmol/L Anion Gap 12 mmol/L BUN 10 (7-17) mg/dL Creatinine 0.47 L (0.52-1.04) mg/dL Est GFR (CKD-EPI)AfAm >90 (>60 ml/min/1.73 sqM) Est GFR (CKD-EPI)NonAf >90 (>60 ml/min/1.73 sqM) Glucose 89 (74-99) mg/dL Calcium 9.4 (8.4-10.2) mg/dL Total Bilirubin 0.3 (0.2-1.3) mg/dL AST 23 (14-36) U/L ALT 23 (4-34) U/L Alkaline Phosphatase 72 (38-126) U/L Total Protein 7.3 (6.3-8.2) g/dL Albumin 4.4 (3.5-5.0) g/dL Influenza Type A (PCR) (Not Detectd) Influenza Type B (PCR) (Not Detectd) RSV (PCR) (Not Detectd) SARS-CoV-2 (PCR) (Not Detectd) 07/07/23 Range/Units 21:52 WBC (3.8-10.6) k/uL RBC (3.80-5.40) m/uL Hgb (11.4-16.0) gm/dL Hct (34.0-46.0) % MCV (80.0-100.0) fL MCH (25.0-35.0) pg MCHC (31.0-37.0) g/dL RDW (11.5-15.5) % Plt Count (150-450) k/uL MPV Neutrophils % % Lymphocytes % % Monocytes % % Eosinophils % % Basophils % % Neutrophils # (1.3-7.7) k/uL Lymphocytes # (1.0-4.8) k/uL Monocytes # (0-1.0) k/uL Eosinophils # (0-0.7) k/uL Basophils # (0-0.2) k/uL PT (10.0-12.5) sec INR (<1.2) APTT (22.0-30.0) sec Sodium (137-145) mmol/L Potassium (3.5-5.1) mmol/L Chloride (98-107) mmol/L Carbon Dioxide (22-30) mmol/L Anion Gap mmol/L BUN (7-17) mg/dL Creatinine (0.52-1.04) mg/dL Est GFR (CKD-EPI)AfAm (>60 ml/min/1.73 sqM) Est GFR (CKD-EPI)NonAf (>60 ml/min/1.73 sqM) Glucose (74-99) mg/dL Calcium (8.4-10.2) mg/dL Total Bilirubin (0.2-1.3) mg/dL AST (14-36) U/L ALT (4-34) U/L Alkaline Phosphatase (38-126) U/L Total Protein (6.3-8.2) g/dL Albumin (3.5-5.0) g/dL Influenza Type A (PCR) Not Detected (Not Detectd) Influenza Type B (PCR) Not Detected (Not Detectd) RSV (PCR) Not Detected (Not Detectd) SARS-CoV-2 (PCR) Not Detected (Not Detectd) Disposition <Karolyn Garrison - Last Filed: 07/07/23 21:20> Is patient prescribed a controlled substance at d/c from ED?: No Time of Disposition: 02:17 <Jonah Champagne - Last Filed: 07/08/23 03:46> Clinical Impression: Shortness of breath Disposition: HOME SELF-CARE Condition: Good Instructions (If sedation given, give patient instructions): Shortness of Breath (ED) Additional Instructions: follow-up with PCP. Report back to ER with any new or worsening symptoms. Referrals: Gualberto Morris MD [Primary Care Provider] - 1-2 days
[2023-07-07 22:10] VITALS: TEMP 99.2
[2023-07-07 23:08] LABS: Basophils # (A) 0.1 k/uL (0-0.2); Basophils % (A) 1 %; Eosinophils # (A) 0.2 k/uL (0-0.7); Eosinophils % (A) 1 %; HCT 40.2 % (34.0-46.0); HGB 13.2 gm/dL (11.4-16.0); Lymphocytes # (A) 3.7 k/uL (1.0-4.8); Lymphocytes % (A) 30 %; MCH 26.8 pg (25.0-35.0); MCHC 32.7 g/dL (31.0-37.0); MCV 81.8 fL (80.0-100.0); Monocytes # (A) 0.4 k/uL (0-1.0); Monocytes % (A) 3 %; Neutrophils # (A) 7.7 k/uL (1.3-7.7); Neutrophils % (A) 63 %; Platelet Count 302 k/uL (150-450); RBC 4.91 m/uL (3.80-5.40); RDW 13.3 % (11.5-15.5); WBC 12.2 k/uL (3.8-10.6)
[2023-07-07 23:17] LABS: Partial Thromboplastin Time 27.8 sec (22.0-30.0); Prothrombin Time 11.1 sec (10.0-12.5)
[2023-07-07 23:23] LABS: ALT 23 U/L (4-34); AST 23 U/L (14-36); African American GFR (CKD) >90 (>60 ml/min/1.73 sqM); Albumin 4.4 g/dL (3.5-5.0); Alkaline Phosphatase 72 U/L (38-126); Anion Gap 12 mmol/L; Blood Urea Nitrogen 10 mg/dL (7-17); Calcium 9.4 mg/dL (8.4-10.2); Carbon Dioxide 23 mmol/L (22-30); Chloride 104 mmol/L (98-107); Glucose 89 mg/dL (74-99); Non-African American GFR(CKD) >90 (>60 ml/min/1.73 sqM); Potassium 3.9 mmol/L (3.5-5.1); Sodium 139 mmol/L (137-145); Total Bilirubin 0.3 mg/dL (0.2-1.3); Total Protein 7.3 g/dL (6.3-8.2)
--- NOTE | 2023-07-08 02:35 | XR ---
EXAM: XR Chest, 2 Views CLINICAL HISTORY: ITS.REASON XR Reason: shortness of breath TECHNIQUE: Frontal and lateral views of the chest. COMPARISON: No relevant prior studies available. FINDINGS: Lungs: No consolidation or mass. Pleural space: No effusion. Heart: No cardiomegaly. Bones/joints: No acute findings. IMPRESSION: No acute cardiopulmonary process.
[2023-07-08 02:55] VITALS: BP 114/77; PULSE 95; RESP 16
== END 2023-07-08 02:41 | disposition home or self-care (01) ==
LOC: EC 20:25
DX: R06.02 Shortness of breath (principal); Z79.82 Long term (current) use of aspirin; Z20.822 Contact with and (suspected) exposure to COVID-19
CPT/HCPCS: 36415; 71046; 80053; 85025; 85610; 85730; 87636; 99285

== ENCOUNTER → 2023-11-06 | Outpatient (CLI) | payer BC ==
--- NOTE | 2023-11-07 05:47 | MR ---
EXAMINATION TYPE: MR tib fib LT wo con, MR tib fib RT wo con DATE OF EXAM: 11/06/2023 COMPARISON: None at this institution. HISTORY: Fever of unknown origin and bilateral bone pain x3 years but getting worse, Right side has w orse symptoms Standard multiplanar, multisequence MRI departmental protocol Multiplanar, multisequence images of the bilateral legs were acquired without contrast. FINDINGS: Tibia and fibula bilaterally are grossly intact. No bony destructive or expansile lesions c learly identified. No suspicious increased T2 signal or osseous edema. No serpiginous diminished T1 s ignal to suggest radio-occult fracture. Muscle bulk is symmetric and maintained bilaterally. No suspi cious ill-defined or well-formed fluid collection. No concerning solid or cystic masses on noncontras t MRI. IMPRESSION: No suspicious findings seen to account for patient's symptoms.
== END | disposition home or self-care (01) ==
LOC: RADMRIMAIN 18:14
PROVIDERS: ATTEND Family Medicine
DX: M89.8X6 Other specified disorders of bone, lower leg (principal); R50.9 Fever, unspecified